=== PATIENT | female | born 1955 | race Caucasian/White ===

== ENCOUNTER 2018-08-24 11:59 | Day surgery (SDC) | payer OTHER, SELFPAY ==
[2018-08-24 12:23] VITALS: BMI 23.6
[2018-08-24 12:39] VITALS: BP 125/77; PULSE 93; RESP 16; TEMP 36.8; O2SAT 96
[2018-08-24] MEDS: SODIUM CHLORIDE 0.9% 1,000 ML 21 ML IV (12:41)
--- NOTE | 2018-08-24 12:43 | PM.HP.1 ---
History of Present Illness Date Patient Seen: 08/24/18 Time Patient Seen: 12:43 Chief complaint: 48735 Colonscopy Narrative: 63-year-old female who presents for colorectal screening. She has never had any examination for such. On further history today she denies any gastrointestinal symptoms. No nausea, vomiting, loss of appetite, abdominal pain, unintended weight loss, change in bowel habits, diarrhea, constipation, melena, hematochezia, or bright red blood per rectum. Patient History Medical History Depression (Chronic) Hyperlipidemia (Chronic) Varicose veins of lower extremity (Resolved) Surgical History Hx of surgical procedure (Resolved ~04/2017) Status post hysterectomy (1998) Family & Social History Family History: Reviewed 08/24/18 by Hardik Starks MD Tobacco & Substance use: Smoking Status Never smoker alcohol intake current Meds Home Medications Medication Instructions Recorded Confirmed Type No Known Home Medications 08/24/18 08/24/18 History Allergies Allergy/AdvReac Type Severity Reaction Status Date / Time Penicillins [PENICILLINS] Allergy Unknown Rash Verified 08/24/18 12:17 Review of Systems Review of Systems All systems reviewed & are unremarkable except as noted in HPI and below Exam Vital Signs (past 8 hours): - 08/24/18 12:39 Temperature 98.3 F Pulse Rate 93 H Respiratory Rate 16 Blood Pressure 125/77 Pulse Oximetry 96 Oxygen Delivery Method Room Air Narrative Exam Narrative: Well-nourished well-developed female in no acute distress. Alert oriented x3. Sclera nonicteric Regular rate and rhythm Abdomen soft, nondistended, nontender Extremities show no clubbing, cyanosis, or edema Objective Labs Labs: No recent laboratory or radiographic studies for review Assessment & Plan Plan: Assessment/Plan Narrative: 63-year-old female requiring colorectal screening by age criteria. Colonoscopy is currently recommended. Technical details of the procedure were discussed. Risks, benefits, alternatives were explained. Risks including but not limited to sedation, aspiration, bleeding, pain, missed lesion, incomplete examination, need for further radiographic studies, colonic perforation, need for major abdominal surgery, and all attendant risks of major surgery were explained at length. All questions were answered to her satisfaction, and she voiced understanding. Consent was placed on the chart. We will proceed as above.
--- NOTE | 2018-08-24 12:45 | PM.PREOP ---
Pre-operative Note Interval Note History & Physical reviewed/Exam performed by Physician: Yes Changes to H&P: No H&P completed within 30 days and has changed as indicated here:: Patient seen and examined today. History and physical examination placed on the chart. Obviously no changes in the last 15 min. Proceed with colonoscopy today as planned. ASA Class (for procedural sedation): I
--- NOTE | 2018-08-24 12:57 | SUR.OPER ---
GLASSES TO PACU WITH PATIENT-LABELED BAG
[2018-08-24] MEDS: MIDAZOLAM 5 MG/5 ML VIAL IV (13:02)
[2018-08-24] MEDS: fentaNYL 250 MCG/5 ML INJ IV (13:02)
[2018-08-24 13:05] VITALS: BP 100/60; PULSE 85; RESP 16; TEMP 36.9; O2SAT 98
--- NOTE | 2018-08-24 13:16 | PM.OP.ENDO ---
Operative Date/Time/Diagnoses Date of procedure: 08/24/18 Time of procedure: 13:16 Post-op diagnosis: other (Diverticulosis but otherwise normal colon and rectum) Procedure & Clinicians Study performed: 1. Sedation per surgeon 2. Colonoscopy Same procedure as scheduled: Yes Indications: 63-year-old female who presents for colorectal screening. She has had no prior examination for such. Colonoscopy is currently recommended. Surgeon: Hardik Starks Procedure Notes Procedure in detail: After obtaining informed consent, the patient was brought to the GI suite and placed in the left lateral decubitus position on the examination table. After placement of appropriate monitors, the patient was given incremental doses of Versed and Fentanyl until an appropriate level of sedation was achieved. A time out was held per [facility] protocol. A digital rectal examination was performed and did not reveal any masses or obstructing lesions. The colonoscope was gently passed into the patient's anus and the entire colon navigated to the level of the cecum with minimal difficulty. Once in the cecum, the scope was withdrawn being sure to go before and beyond all mucosal folds and prominences and get an excellent examination. The findings are noted above. At the level of the rectal vault, the scope was retroflexed and the internal anal canal was examined. The scope was straightened and air aspirated from the colon. The instrument was removed from the patient's body and the procedure was concluded. The patient was allowed to awaken from sedation without difficulty and taken to the post-anesthesia care unit in good condition. Scope withdrawal time: 7:04 min Sedation minutes: 24 Findings: diverticulosis and other findings (Otherwise normal colon and rectum, but colon was somewhat tortuous) Specimen(s): none sent Complications: none Recommendations: Colonscopy in 10 years and High fiber diet Plan for aftercare: 1. Discharge home Follow up: as needed Disposition: PACU
[2018-08-24 13:18] VITALS: BP 95/64; PULSE 80; RESP 14; TEMP 36.4; O2SAT 98
[2018-08-24 13:23] VITALS: BP 93/62; PULSE 88; RESP 14; TEMP 36.9; O2SAT 98
[2018-08-24 13:28] VITALS: BP 101/67; PULSE 89; RESP 14; TEMP 36.9; O2SAT 95
[2018-08-24 13:30] VITALS: BP 99/60; PULSE 85; RESP 14; TEMP 36.9; O2SAT 96
== END 2018-08-24 13:10 | disposition home or self-care (01) ==
PROVIDERS: PCP Family Medicine; Visit Provider Surgery
PROC: 0DJD8ZZ Inspection of Lower Intestinal Tract, Via Natural or Artificial Opening Endoscopic (ICD-10-PCS; CPT 45378; principal; 2018-08-24 13:00)
DX: Z12.11 Encounter for screening for malignant neoplasm of colon (principal); K57.30 Diverticulosis of large intestine without perforation or abscess without bleeding; E78.5 Hyperlipidemia, unspecified
CPT/HCPCS: 45378; 99152; 99153; J2250; J3010